=== PATIENT | male | born 2000 | race Caucasian/White ===

== ENCOUNTER 2021-10-01 13:47 | Emergency (ER) | payer SELFPAY ==
[2021-10-01] MEDS ORDERED: Ketorolac Tromethamine 30 MG/ML VIAL ONE (14:07)
[2021-10-01] MEDS ORDERED: Acetaminophen/Codeine 30-300mg Tablet ONE (15:15)
== END 2021-10-01 15:21 | disposition home or self-care (01) ==
LOC: NAV ERS 13:47
DX: M25.562 Pain in left knee (principal); F17.210 Nicotine dependence, cigarettes, uncomplicated
CPT/HCPCS: 96372; J1885